=== PATIENT | female | born 1955 | race African-American/Black ===

== ENCOUNTER 2022-06-11 09:51 | Inpatient (IN) | payer MEDICARE, MEDICAID ==
[~2022-06-11] VITALS: Ht 165.1 cm; Wt 69.4 kg
[~2022-06-11 09:51] MED LIST: ACET1TAB14; ALBU05 NEB; ALBU6.7H3 INH; BUSP10TA3; BUSP10TA3 PO; CARI350T27; CARI350T27 PO; DIVA-75 PO; FLUV100T22 PO; HYDR25TA PO; LORA-250 MT; NIFE30TA43 PO; P50 MT; ZOLP5TAB8 PO
[2022-06-11] MEDS ORDERED: CLONIDINE 0.2MG TABLET PO ONE (10:00)
[2022-06-11] MEDS ORDERED: MAGNESIUM 2 G PREMIX 50 ML IV ONE (10:00)
[2022-06-11] MEDS ORDERED: METHYLPREDNISOLONE SOD SUCC 125 MG/2 ML VIAL IV ONE (10:00)
[2022-06-11 11:58] LABS: EOSINOPHILS % 11.9 % (0.0-5.0); HEMATOCRIT. 42.5 % (36.0-48.0); HEMOGLOBIN. 14.1 g/dL (12.0-16.0); LYMPHOCYTES % 31.4 % (20.0-50.0); MEAN CORPUSCULAR HEMOGLOBIN 29.2 pg (28.0-32.0); MEAN CORPUSCULAR VOLUME 88.4 fL (81.0-99.0); MONOCYTES % 6.1 % (2.0-8.0); NEUTROPHILS % 49.6 % (40.0-76.0); PLATELET 262 x1000/uL (130-400); RED BLOOD CELL COUNT 4.81 mill/uL (4.2-5.4); RED CELL DISTRIBUTION WIDTH 14.7 % (11.6-14.6)
[2022-06-11 12:04] LABS: CHLORIDE 108 mEq/L (98-107)
[2022-06-11] MEDS ORDERED: NIFEDIPINE XL 60MG TAB PO SCH (13:00)
[2022-06-11] MEDS ORDERED: ACETAMINOPHEN 325MG TABLET PO PRN ×3 (13:00→14:30)
[2022-06-11] MEDS ORDERED: ONDANSETRON HCL 4MG/2ML INJ IV PRN ×2 (13:00→14:30)
[2022-06-11] MEDS ORDERED: HYDROCODONE/ACETAMINOPHEN 5/325MG TABLET PO PRN (14:30)
[2022-06-11] MEDS ORDERED: DOCUSATE SODIUM 100MG CAPSULE PO PRN (14:30)
[2022-06-11] MEDS ORDERED: GUAIFENESIN 200MG/10ML SUGAR FREE UDC PO PRN (14:30)
[2022-06-11] MEDS ORDERED: CLONIDINE 0.1MG TABLET PO PRN (14:30)
[2022-06-11] MEDS ORDERED: MAGNESIUM/ALUMINUM HYDROXIDE/SIMETHICONE 30ML UDC PO PRN (14:30)
[2022-06-11] MEDS ORDERED: NALOXONE HCL 0.4MG/ML VIAL IV PRN (14:45)
[2022-06-11] MEDS: ENOXAPARIN 40MG/0.4ML SYR SUBCUT SCH (15:23)
[2022-06-11] MEDS: METHYLPREDNISOLONE SOD SUCC 40 MG/ML VIAL IV SCH ×2 (15:23→21:21)
[2022-06-11] MEDS ORDERED: DEXTROSE 50% WATER 50ML SYRINGE IV PRN (15:30)
[2022-06-11] MEDS ORDERED: KETOROLAC 30MG/ML VIAL IM PRN (15:45)
[2022-06-11] MEDS ORDERED: IPRATROPIUM/ALBUTEROL 0.5-3(2.5)MG/3ML NEB HHN SCH ×2 (16:00→18:00)
[2022-06-11] MEDS ORDERED: CEFTRIAXONE 1 G PREMIX 50 ML IV SCH (16:00)
[2022-06-11] MEDS ORDERED: AZITHROMYCIN 500MG/250ML 250 ML IV NR (16:00)
[2022-06-11 16:24] VITALS: BP 115/72
[2022-06-11] MEDS: BLOOD SUGAR DIAGNOSTIC STRIP TEST SCH ×2 (16:41→21:00)
[2022-06-11] MEDS: INSULIN LISPRO 100 UNITS/ML SUBCUT SCH ×2 (17:08→21:39)
[2022-06-11 17:40] LABS: BG BASE EXCESS 0.7 mmol/L (-2.0-2.0); BG CARBOXYHEMOGLOBIN 0.3 % (0.5-1.5); BG DEOXYHEMOGLOBIN 2.9 % (0.0-5.0); BG FRACTION INSPIRED OXYGEN 28; BG HCO3 ACT 26.1 mmol/L (22.0-26.0); BG METHEMOGLOBIN 0.1 % (0.0-1.5); BG OXYGEN SATURATION 97.1 % (92.0-98.5); BG OXYHEMOGLOBIN 96.7 % (94.0-97.0); BG PCO2 44.6 mmHg (35.0-45.0); BG PH 7.385 (7.350-7.450); BG PO2 91.2 mmHg (75.0-100.0); BG SAMPLE SITE RIGHT RADIAL; BG TOTAL HEMOGLOBIN 13.8 g/dL (12.0-18.0); BG VENT MODE NASAL CANNULA
[2022-06-11] MEDS ORDERED: METHYLPREDNISOLONE SOD SUCC 40 MG/ML VIAL IV SCH (18:00)
[2022-06-11] MEDS ORDERED: ZOLPIDEM TARTRATE 5MG TABLET PO PRN (18:15)
[2022-06-11 20:00] VITALS: BP 126/82
[2022-06-11] MEDS: ALBUTEROL (0.083%) 2.5MG/3ML NEB HHN SCH ×2 (20:54→23:56)
[2022-06-11] MEDS: IPRATROPIUM BROMIDE (0.02%) 0.5MG/2.5ML NEB HHN SCH ×2 (20:54→23:56)
[2022-06-11] MEDS: FAMOTIDINE 20MG/2ML VIAL IV SCH (21:21)
[2022-06-11] MEDS ORDERED: KETOROLAC 30MG/ML VIAL IV PRN (23:45)
[2022-06-12] VITALS: BP 111/59
[2022-06-12] MEDS ORDERED: AMLO10TA80 PO (00:42)
[2022-06-12] MEDS ORDERED: NAPR-681 MT ×2 (00:47→16:39)
[2022-06-12] MEDS ORDERED: MONT-39 MT ×2 (00:48→16:39)
[2022-06-12] MEDS ORDERED: METF-414 MT ×2 (00:49→16:39)
[2022-06-12 04:00] VITALS: BP 109/60
[2022-06-12] MEDS: METHYLPREDNISOLONE SOD SUCC 40 MG/ML VIAL IV SCH ×2 (06:07→13:24)
[2022-06-12] MEDS: BLOOD SUGAR DIAGNOSTIC STRIP TEST SCH ×2 (06:08→11:53)
[2022-06-12] MEDS ORDERED: LORAZEPAM 1MG TABLET PO PRN (06:15)
[2022-06-12] MEDS: INSULIN LISPRO 100 UNITS/ML SUBCUT SCH ×2 (06:28→12:46)
[2022-06-12 07:54] LABS: BASOPHILS % 0.3 % (0.0-2.0); HEMATOCRIT. 36.8 % (36.0-48.0); HEMOGLOBIN. 12.2 g/dL (12.0-16.0); LYMPHOCYTES % 9.6 % (20.0-50.0); MEAN CORPUSCULAR HEMOGLOBIN 28.8 pg (28.0-32.0); MEAN CORPUSCULAR VOLUME 86.7 fL (81.0-99.0); MEAN PLATELET VOLUME 9.1 fl (7.4-10.4); NEUTROPHILS % 87.1 % (40.0-76.0); PLATELET 227 x1000/uL (130-400); RED BLOOD CELL COUNT 4.25 mill/uL (4.2-5.4); RED CELL DISTRIBUTION WIDTH 14.7 % (11.6-14.6)
[2022-06-12 08:00] VITALS: BP 127/78
[2022-06-12] MEDS: IPRATROPIUM BROMIDE (0.02%) 0.5MG/2.5ML NEB HHN SCH ×3 (08:15→16:49)
[2022-06-12] MEDS: ALBUTEROL (0.083%) 2.5MG/3ML NEB HHN SCH ×3 (08:15→16:49)
[2022-06-12] MEDS ORDERED: CARISOPRODOL 350 MG TABLET PO SCH (09:00)
[2022-06-12] MEDS ORDERED: AMLODIPINE 10MG TABLET PO SCH (09:00)
[2022-06-12] MEDS ORDERED: HYDROCHLOROTHIAZIDE 25MG TABLET PO SCH (09:00)
[2022-06-12] MEDS ORDERED: DIVALPROEX SODIUM 500MG DR TABLET PO SCH (09:00)
[2022-06-12] MEDS ORDERED: NIFEDIPINE XL 30MG TAB PO SCH (09:00)
[2022-06-12] MEDS ORDERED: FLUVOXAMINE MALEATE 100 MG PO SCH (09:00)
[2022-06-12] MEDS: FAMOTIDINE 20MG/2ML VIAL IV SCH (09:04)
[2022-06-12] MEDS: BUSPIRONE HCL 10MG TABLET PO SCH ×2 (09:05→13:24)
[2022-06-12 09:10] LABS: CHLORIDE 108 mEq/L (98-107)
[2022-06-12 09:28] LABS: HDL CHOLESTEROL 103 mg/dL (40-59); LDL CHOLESTEROL 77 mg/dL (5-100); T4 FREE 0.85 ng/dL (0.76-1.46)
[2022-06-12 12:00] VITALS: BP 104/58
[2022-06-12] MEDS ORDERED: AZITHROMYCIN 500MG in DEXTROSE 5% WATER 250ML IV SCH (16:00)
[2022-06-12] MEDS ORDERED: CEFTRIAXONE 1,000 MG in DEXTROSE 5% WATER 50 ML IV SCH (16:00)
[2022-06-12] MEDS: ENOXAPARIN 40MG/0.4ML SYR SUBCUT SCH (16:02)
[2022-06-12] MEDS ORDERED: BUSP10TA3 PO ×2 (16:39→16:54)
[2022-06-12] MEDS ORDERED: ALBU6.7H3 INH ×2 (16:39→16:54)
[2022-06-12] MEDS ORDERED: DIVA-75 PO ×2 (16:39→16:54)
[2022-06-12] MEDS ORDERED: ALBU05 NEB (16:39)
[2022-06-12] MEDS ORDERED: CARI350T27 PO ×4 (16:39→16:59)
[2022-06-12] MEDS ORDERED: HYDR25TA PO ×2 (16:39→16:54)
[2022-06-12] MEDS ORDERED: LORA-250 MT (16:39)
[2022-06-12] MEDS ORDERED: ZOLP5TAB8 PO ×4 (16:39→16:59)
[2022-06-12] MEDS ORDERED: FLUV100T22 PO ×2 (16:39→16:54)
[2022-06-12 16:46] LABS: BG BASE EXCESS -0.3 mmol/L (-2.0-2.0); BG CARBOXYHEMOGLOBIN 0.3 % (0.5-1.5); BG DEOXYHEMOGLOBIN 2.3 % (0.0-5.0); BG HCO3 ACT 23.2 mmol/L (22.0-26.0); BG METHEMOGLOBIN 0.3 % (0.0-1.5); BG OXYGEN SATURATION 97.7 % (92.0-98.5); BG OXYHEMOGLOBIN 97.1 % (94.0-97.0); BG PCO2 34.1 mmHg (35.0-45.0); BG PO2 103.6 mmHg (75.0-100.0); BG SAMPLE SITE RIGHT RADIAL; BG TOTAL HEMOGLOBIN 12.2 g/dL (12.0-18.0); BG VENT MODE NASAL CANNULA
[2022-06-12] MEDS ORDERED: LORA-250 PO ×3 (16:54→16:59)
[2022-06-12] MEDS ORDERED: NAPR-681 PO (16:54)
[2022-06-12] MEDS ORDERED: MONT-39 PO (16:54)
[2022-06-12] MEDS ORDERED: MONTELUKAST SODIUM 10MG TABLET PO SCH (17:00)
[2022-06-12 17:24] VITALS: BP 104/58
[2022-06-12] MEDS ORDERED: FAMOTIDINE 20MG TABLET PO SCH (21:00)
== END 2022-06-12 17:10 | disposition home health service (06) | DRG 189 ==
LOC: ER 09:56 → 7EST 13:17 → EDBEDREQ 13:19 → SUPCPDRO 13:23 → ENRESERV 15:25
PROVIDERS: ADMIT Internal Medicine; ATTEND Internal Medicine
PROC: 5A09357 Assistance with Respiratory Ventilation, Less than 24 Consecutive Hours, Continuous Positive Airway Pressure (ICD-10-PCS; principal; 2022-06-11)
DX: J96.01 Acute respiratory failure with hypoxia (principal); J44.1 Chronic obstructive pulmonary disease with (acute) exacerbation; I16.0 Hypertensive urgency; R73.03 Prediabetes; M06.9 Rheumatoid arthritis, unspecified; Z20.822 Contact with and (suspected) exposure to COVID-19; F31.9 Bipolar disorder, unspecified; I10 Essential (primary) hypertension; M19.90 Unspecified osteoarthritis, unspecified site; Z79.84 Long term (current) use of oral hypoglycemic drugs; Z82.5 Family history of asthma and other chronic lower respiratory diseases; Z99.81 Dependence on supplemental oxygen
CPT/HCPCS: 36415; 36600; 71045; 73120; 80053; 80061; 82375; 82805; 82962; 83036; 83880; 84439; 84443; 84481; 84484; 85025; 85651; 86431; 87426; 93005; 94640; 94660; 99291; J0456; J0696; J1650; J1815; J1885; J2920; J2930; J3475; J3490; J7060

== ENCOUNTER 2024-02-14 22:13 | Inpatient (IN) | payer MEDICARE, MEDICAID ==
[~2024-02-14] VITALS: Ht 165.1 cm; Wt 67.6 kg
[~2024-02-14 22:13] MED LIST changes: -ACET1TAB14; -BUSP10TA3; -CARI350T27; -LORA-250 MT; +LORA-250 PO; +MONT-39 PO; +NAPR-681 PO; -P50 MT
[2024-02-14 22:54] LABS: BASOPHILS % 0.8 % (0.0-2.0); EOSINOPHILS % 7.3 % (0.0-5.0); HEMATOCRIT. 43.9 % (36.0-48.0); HEMOGLOBIN. 14.6 g/dL (12.0-16.0); LYMPHOCYTES % 22.6 % (20.0-50.0); MEAN CORPUSCULAR HEMOGLOBIN 30.7 pg (28.0-32.0); MEAN CORPUSCULAR HGB CONC 33.2 g/dL (31.0-37.0); MEAN CORPUSCULAR VOLUME 92.3 fL (81.0-99.0); MEAN PLATELET VOLUME 8.7 fl (7.4-10.4); MONOCYTES % 6.2 % (2.0-8.0); NEUTROPHILS % 63.1 % (40.0-76.0); PLATELET 214 x1000/uL (130-400); RED BLOOD CELL COUNT 4.76 mill/uL (4.2-5.4); RED CELL DISTRIBUTION WIDTH 16.3 % (11.6-14.6); WHITE BLOOD COUNT 6.9 x1000/uL (4.5-11.0)
[2024-02-14 23:05] LABS: CHLORIDE 105 mEq/L (98-107); POTASSIUM 3.2 mEq/L (3.5-5.1); SODIUM 141 mEq/L (136-145)
[2024-02-14 23:06] LABS: CARBON DIOXIDE 30 mEq/L (21-32)
[2024-02-14 23:07] LABS: CALCIUM 10.2 mg/dL (8.7-10.4)
[2024-02-14 23:11] LABS: CREATININE 0.8 mg/dL (0.6-1.0); GLUCOSE 190 mg/dL (70-105); UREA NITROGEN BLOOD 15 mg/dL (9-23)
[2024-02-14 23:19] LABS: TROPONIN I HIGH SENSITIVITY 74 ng/L (3.0-34)
[2024-02-14] MEDS: METHYLPREDNISOLONE SOD SUCC 125MG/2ML (ACT-O-VIAL) IV STA (23:29)
[2024-02-14] MEDS: IPRATROPIUM BROMIDE (0.02%) 0.5MG/2.5ML NEB HHN STA (23:32)
[2024-02-14 23:33] VITALS: PULSE 77; RESP 20; O2SAT 99
[2024-02-14] MEDS: ALBUTEROL (0.083%) 2.5MG/3ML NEB HHN STA (23:33)
[2024-02-15] MEDS ORDERED: CLONIDINE 0.1MG TABLET PO PRN (00:45)
[2024-02-15] MEDS ORDERED: ACETAMINOPHEN 325MG TABLET PO PRN (00:45)
[2024-02-15] MEDS ORDERED: HYDROCODONE/ACETAMINOPHEN 5/325MG TABLET PO PRN (00:45)
[2024-02-15] MEDS ORDERED: ONDANSETRON HCL 4MG/2ML INJ IV PRN (00:45)
[2024-02-15] MEDS: LEVOFLOXACIN 500MG PREMIX 100 ML IV SCH (01:08)
[2024-02-15] MEDS: METHYLPREDNISOLONE SOD SUCC 40MG/ML (ACT-O-VIAL) IV SCH (01:53)
[2024-02-15 03:01] LABS: TROPONIN I HIGH SENSITIVITY 232 ng/L (3.0-34)
[2024-02-15 08:10] LABS: CREATINE KINASE MB FRACTION 9.1 ng/mL (0.5-3.6)
[2024-02-15] MEDS: ASPIRIN 325MG EC TABLET PO ONE (08:42)
[2024-02-15] MEDS: ENOXAPARIN 60MG/0.6ML SYR SUBCUT ONE (08:46)
[2024-02-15] MEDS: IPRATROPIUM/ALBUTEROL 0.5-3(2.5)MG/3ML NEB HHN SCH (09:00)
[2024-02-15] MEDS: ENOXAPARIN 40MG/0.4ML SYR SUBCUT SCH (09:00)
[2024-02-15 09:08] VITALS: PULSE 68; RESP 18; O2SAT 98
[2024-02-15] MEDS ORDERED: NALOXONE HCL 0.4MG/ML VIAL IV PRN (12:45)
[2024-02-15] MEDS: AMLODIPINE 10MG TABLET PO SCH (14:51)
[2024-02-15] MEDS: LEVOFLOXACIN 250MG PREMIX 50 ML IV SCH (16:00)
[2024-02-15 16:16] VITALS: PULSE 90; RESP 19; O2SAT 98
[2024-02-15 17:04] LABS: CREATINE KINASE MB FRACTION 7.9 ng/mL (0.5-3.6)
[2024-02-15 22:58] VITALS: BP 149/71; PULSE 80; RESP 18; TEMP 36.3624
[2024-02-16] VITALS (12 sets, daily range): BP systolic 130–165; BP diastolic 75–98; PULSE 68–90; RESP 16–20; TEMP 36.05844–36.9474; O2SAT 96–99
[2024-02-16 07:10] LABS: CARBON DIOXIDE 30 mEq/L (21-32); CHLORIDE 106 mEq/L (98-107); SODIUM 142 mEq/L (136-145)
[2024-02-16 07:11] LABS: CALCIUM 9.9 mg/dL (8.7-10.4)
[2024-02-16 07:16] LABS: GLUCOSE 124 mg/dL (70-105); UREA NITROGEN BLOOD 27 mg/dL (9-23)
[2024-02-16 07:35] LABS: BASOPHILS % 0.1 % (0.0-2.0); EOSINOPHILS % 0.1 % (0.0-5.0); HEMATOCRIT. 41.2 % (36.0-48.0); HEMOGLOBIN. 13.7 g/dL (12.0-16.0); LYMPHOCYTES % 13.5 % (20.0-50.0); MEAN CORPUSCULAR HEMOGLOBIN 30.8 pg (28.0-32.0); MEAN CORPUSCULAR HGB CONC 33.1 g/dL (31.0-37.0); MEAN CORPUSCULAR VOLUME 92.9 fL (81.0-99.0); MEAN PLATELET VOLUME 9.5 fl (7.4-10.4); MONOCYTES % 5.6 % (2.0-8.0); NEUTROPHILS % 80.7 % (40.0-76.0); PLATELET 216 x1000/uL (130-400); RED BLOOD CELL COUNT 4.44 mill/uL (4.2-5.4); RED CELL DISTRIBUTION WIDTH 15.8 % (11.6-14.6); WHITE BLOOD COUNT 11.8 x1000/uL (4.5-11.0)
[2024-02-16] MEDS ORDERED: BUSPIRONE HCL 10MG TABLET PO SCH (09:00)
[2024-02-16] MEDS: NIFEDIPINE XL 30MG TAB PO SCH (09:29)
[2024-02-16] MEDS: ASPIRIN 81MG TABLET PO SCH (09:30)
[2024-02-16] MEDS: BUSPIRONE HCL 10MG TABLET PO SCH (09:30)
[2024-02-16] MEDS: DIVALPROEX SODIUM 500MG DR TABLET PO SCH (09:30)
[2024-02-16] MEDS: HYDROCHLOROTHIAZIDE 25MG TABLET PO SCH (09:30)
[2024-02-16] MEDS: MONTELUKAST SODIUM 10MG TABLET PO SCH (18:00)
[2024-02-16] MEDS: ZOLPIDEM TARTRATE 5MG TABLET PO PRN (23:25)
[2024-02-16] MEDS: LORAZEPAM 1MG TABLET PO PRN (23:25)
[2024-02-17] VITALS (8 sets, daily range): BP systolic 124–138; BP diastolic 63–73; PULSE 74–88; RESP 16–19; TEMP 36.33624–37.11408; O2SAT 95–98
[2024-02-17] MEDS ORDERED: ALBU05 NEB (14:08)
[2024-02-17] MEDS ORDERED: METH4TAB95 MT (14:08)
[2024-02-17] MEDS ORDERED: LEVO750T68 MT (14:08)
[2024-02-17] MEDS: LEVOFLOXACIN 500MG PREMIX 100 ML IV SCH (15:09)
== END 2024-02-17 18:15 | disposition home health service (06) | DRG 189 ==
LOC: ER 22:13 → 5WST 23:20 → EDBEDREQ 23:34 → EDBEDREQTM 23:34 → 7WST 02-15 20:47
PROVIDERS: ADMIT Internal Medicine; ATTEND Internal Medicine
DX: J96.01 Acute respiratory failure with hypoxia (principal); I21.A1 Myocardial infarction type 2; J44.1 Chronic obstructive pulmonary disease with (acute) exacerbation; Z20.822 Contact with and (suspected) exposure to COVID-19; I16.0 Hypertensive urgency; I10 Essential (primary) hypertension; F20.9 Schizophrenia, unspecified; E87.6 Hypokalemia; J43.9 Emphysema, unspecified; E11.65 Type 2 diabetes mellitus with hyperglycemia; Z87.891 Personal history of nicotine dependence; Z99.81 Dependence on supplemental oxygen
CPT/HCPCS: 36415; 71045; 80048; 82550; 82553; 83880; 84484; 85025; 87426; 87804; 93005; 93306; 93970; 94640; 99291; J1650; J1956; J2919; J2920